=== PATIENT | male | born 1980 | race Caucasian/White ===

== ENCOUNTER → 2017-05-05 | Outpatient (CLI) | payer OTHER ==
--- NOTE | 2017-05-05 15:20 | US ---
EXAMINATION TYPE: US scrotum with doppler. Grayscale and color Doppler Duplex imaging performed of t he scrotum. DATE OF EXAM: 05/05/2017 COMPARISON: NONE CLINICAL HISTORY: N50.819 testicular pain. EXAM MEASUREMENTS: TESTICLES: Right Testicle: 4.1 x 2.6 x 3.1 cm Left Testicle: 4.3 x 2.3 x 3.1 cm EPIDIDYMIS HEAD: Right Epididymis: 0.9 cm Left Epididymis: 0.8 cm Doppler performed to assess for testicular vascularity; good bilateral color flow and waveforms are s een. There is no evidence of testicular torsion. Presence of hydroceles: No Presence of varicoceles: Yes, on the left Microlithiasis visualized bilaterally. IMPRESSION: 1. 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 Correlate clinically. 2. Small left varicocele.
== END | disposition home or self-care (01) ==
LOC: RADUSWWP 14:14
PROVIDERS: ATTEND Family Medicine
DX: I86.1 Scrotal varices (principal); N50.89 Other specified disorders of the male genital organs
CPT/HCPCS: 76870; 93975